=== PATIENT | female | born 1995 | race Caucasian/White ===

== ENCOUNTER 2020-06-12 10:45 | Inpatient (IN) | payer MEDICAID, SELFPAY ==
[2020-06-12] VITALS (18 sets, daily range): BP systolic 103–136; BP diastolic 57–77; PULSE 89–114; RESP 16–18; TEMP 35.9–36.8; O2SAT 97–100; BMI 47.7
[2020-06-12] MEDS: Lactated Ringers 1,000 ML 50 ML IV ×2 (10:45→13:53)
--- NOTE | 2020-06-12 11:30 | US_ITS ---
STUDY: OBSTETRICAL ULTRASOUND - BIOPHYSICAL PROFILE REASON FOR EXAM: Female, 24 years old growth -- biophysical and growth scan needed LMP: 09/04/2019. PRIOR ULTRASOUND: None. TECHNIQUE: Transabdominal TECHNICAL QUALITY: Adequate. FINDINGS: There is a single intrauterine fetus. The fetus is in a cephalic presentation. There is demonstrated cardiac activity with a heart rate of 140 bpm. There is a normal amniotic fluid volume. The largest amniotic fluid pocket measures 6.7 cm. The amniotic fluid index (CHAYO) is 10.3 cm. The placenta is anterior in location and is not low lying. There are Grade 3 placental changes. Age by LMP: 40 weeks, 2 days. LEAH by LMP: 06/10/2020. BIOPHYSICAL PROFILE: Breathing Movements (FBM): 2 Gross Body Movements (GBM): 2 Tone (FT): 2 Amniotic Fluid Volume (AFV): 2 TOTAL SCORE: 8 / 8 US/Biophysical Prof W/O Non Stres IMPRESSION: Normal biophysical profile of 8/8. Electronically Signed: Justin Irvin MD at 13:06 EST , Service support ,
[2020-06-12 11:34] LABS: Absolute Lymphocyte Count 1.93 X10^3/uL (0.83-4.51); Absolute Neutrophil Count 11.1 X10^3/uL (2.0-7.7); Basophil# 0.04 X10^3/uL; Basophil% 0.3 % (0-1); Eosinophil# 0.09 X10^3/uL; Eosinophils% 0.6 % (0-5); Hematocrit 32.8 % (37-47); Lymphocyte # 1.93 X10^3/ul (4.0); Lymphocyte % 13.4 % (19-41); Mean Corp Hgb Conc 30.5 g/dL (32-36); Mean Corpuscular Hgb 23.6 pg (27.0-32.0); Mean Corpuscular Volume 77.5 fL (81-99); Mean Platelet Vol. 11.1 fl (6.2-12.0); Monocyte# 1.12 X10^3/uL; Monocyte% 7.8 % (0-10); NRBC Flagged by Analyzer 0 % (0-5); Neutrophil # 11.06 X10^3/uL (2.7-7.7); Platelet Count 329 K/mm3 (150-450); RBC Distribution Width CV 14.2 % (11.6-14.6); RBC Distribution Width SD 39.6 fl (35.1-43.9); Red Blood Count 4.23 M/mm3 (4.2-5.4); White Blood Count 14.4 K/mm3 (4.4-11.0)
--- NOTE | 2020-06-12 11:42 | US_ITS ---
STUDY: SECOND AND THIRD TRIMESTER OBSTETRICAL ULTRASOUND - LIMITED REASON FOR EXAM: Female, 24 years old GROWTH SCAN 40.2 WEEKS GESTATION LMP: 09/04/2019. PRIOR ULTRASOUND: None. TECHNIQUE: Transabdominal TECHNICAL QUALITY: Adequate. FINDINGS: There is a single intrauterine fetus. The fetus is in a cephalic presentation. There is demonstrated cardiac activity with a heart rate of 143 bpm. There is a normal amniotic fluid volume. The largest amniotic fluid pocket measures 6.75 cm. The amniotic fluid index (CHAYO) is 12.14 cm. The placenta is anterior in location and is not low lying. There are Grade 3 placental changes. BIOMETRY: BPD: 9.22 cm: 37 weeks, 4 days HC: 34.89 cm: 40 weeks, 4 days AC: 38.94 cm: 40 weeks, 0 days FL: 7.24 cm: 37 weeks, 1 days Age by LMP: 40 weeks, 2 days. LEAH by LMP: 06/10/2020. age by current US: 38 weeks, 3 days. LEAH by current US: 06/23/2020. Estimated weight: 4212 grams, +/- 6:15 grams, US/OB Limited With Biometrics IMPRESSION: Single live intrauterine gestation with a mean gestational age of 40 weeks and 2 days. Electronically Signed: Justin Irvin MD at 13:45 EST , Service support ,
[2020-06-12] MEDS: Acetaminophen 500 MG Tablet PO (14:28)
[2020-06-12] MEDS: Sodium Citrate/Citric Acid 30 ML UDC PO (16:17)
[2020-06-12] MEDS: Cefazolin 2 GM in 0.9% Normal Saline 100 ML IV (16:35)
--- NOTE | 2020-06-12 16:57 | PCM.HP.OB ---
History Date of Admission: 06/12/20 Final LEAH: 06/10/20 Gestational age: 40 Weeks and 2 Days History of this : This is a 24 year-old, 1 para 0 at 40-2/7 weeks presented to labor and delivery complaining of some cramping today. She was found not to be in labor but had periods of minimal variability and questionable decelerations. The nonstress test was then be reactive. Patient was sent for biophysical profile and ultrasound for growth because her fundal height had been measuring large for gestational age and the office. She denied any vaginal bleeding or leaking of fluid. She had good movement. Allergies No Known Allergies Allergy (Verified 12/22/16 12:32) Home Medications: Home Medications Norgestrel-Ethinyl Estradiol [Cryselle-28 Tablet] 1 each PO DAILY 08/27/15 Albuterol Inhaler [Ventolin Hfa] 1 - 2 puff INHALATION Q4H PRN PRN #1 inhaler 12/22/16 Guaifenesin/Pseudoephedrne HCl [Mucinex D ER 1,200-120 mg Tab] 1 each PO BID #14 tab.er.12h 12/22/16 Pnv No.95/Ferrous Fum/Folic AC [ Caplet] 1 ea PO DAILY 06/12/20 Smoking Status: Former smoker Alcohol: None Number of Fetus(es): 1 NST - FHR Rate Baby A Baseline: normal Variability:: Minimal, Moderate Accelerations:: 15 x 15 Decelerations:: None NST Reactive:: Yes Uterine Activity:: irreg ctxs History Past Pregnancies: Past Pregnancies Delivery Date Name GA/ Weeks Outcome Route Wt Sex Labor Length Anesthesia Delivery Location Provider FOB Expected Delivery Method: Scheduled Section Review of Systems Constitutional: Denies: Chills, Fever, Night Sweats Eyes: Denies: Blurred vision, Double vision HEENT: Denies: Head Aches, Visual Changes Cardiovascular: Reports: Edema. Denies: Chest Pain Respiratory: Reports: Shortness of Breath - appropriate for . Denies: Cough Gastrointestinal: Denies: Diarrhea, Vomiting Genitourinary: Denies: Dysuria Gynecological: Denies: Vaginal itching Skin: Denies: Rash Neurological: Denies: Blurred vision, Change in Speech, Slurred speech Hematologic/ Lymphatic: Denies: Anemia, Easy Bruising, Easy Bleeding, Hx of blood clot Physical Exam Vitals: Vital Signs Temp Pulse Resp BP Pulse Ox 97.5 F L 104 H 16 136/70 H 100 06/12/20 15:41 06/12/20 15:45 06/12/20 15:41 06/12/20 15:45 06/12/20 15:44 General: Alert, Cooperative, No apparent distress Cardiovascular: Regular rate Lungs: Normal air movement Abdomen: Soft, Non Tender, Non-Distended, Gravid Extremities:: Deep tendon reflexes, Other - 2+edema Neurological: Cranial nerves II-XII grossly intact Assessment/Plan This is a 24 year-old, status of weight gain during the , 70 pounds. Maternal obesity with BMI of 47. Inadequate maternal pelvis. Unengaged head at term. 40-2/7 weeks gestation with large for gestational age . Pelvic exam by me today reveals very narrow arch and prominent heel spines in close proximity. head is not engaged. Discussed with patient risk benefits and alternatives to trial of labor versus primary section. Patient elects for primary section. Risk benefits alternatives and personnel involved with this were reviewed including short and long-term complications and implications for primary section. Discussed with her implications for future pregnancies as well. Her questions were answered to her satisfaction, consent was signed and she desires to proceed.
[2020-06-12] MEDS: Ketorolac 30 MG/ML Syringe IV ×2 (17:42→23:59)
--- NOTE | 2020-06-12 17:45 | OP.PCM_ITS ---
Delivery Classification: Scheduled Final LEAH: 06/10/20 Gestational age: 40 Weeks and 2 Days acid operator: Emily Perry Type of Anesthesia:: Spinal Special Medications: none Implants Used: none Date of Procedure: 06/12/20 Pre-Operative Diagnosis: full term , suspected macrosomic infant, unengaged head at term, small maternal pelvis Post-Operative Diagnosis: same Description of Procedure: The patient was taken to the operating room. She was prepped and draped in the dorsal supine position with a leftward tilt. A Pfannenstiel skin incision was made approximately 2 cm above the symphysis pubis and carried through to underlying layer fascia with the scalpel. The fascia was incised incised in the midline and extended laterally with the Calzada scissors. The fascia was dissected off the rectus muscles with blunt and sharp dissection. The rectus muscles were in the midline and the peritoneum was entered bluntly. The peritoneal incision was stretched and the Jamar -O retractor was placed in the usual fashion The uterine incision was made in a low transverse fashion with the scalpel and extended superiorly and inferiorly with blunt dissection. The amniotic membranes were ruptured bluntly and clear amniotic fluid returned. The infant's head was brought to the incision in the flexed position and delivered without difficulty. The remainder of the was delivered with gentle traction and fundal pressure in the standard fashion. The mouth and nares were bulb suctioned. The cord was clamped and cut as the was stimulated. Cord clamping was delayed. The was handed off to the waiting nursing staff. The placenta was delivered with fundal massage and gentle traction in the standard fashion. The uterus was exteriorized and cleared of all clots and debris. The cervix was dilated with a ring forcep. The uterine incision was closed with #1 Vicryl in a running locked fashion. A second layer of the same suture was used in an imbricating fashion. The incision was examined and was found to be hemostatic. The uterus was placed back into the peritoneal cavity and hemostasis was again confirmed. The rectus muscles were examined and any bleeding was Bovie cauterized. The parietal peritoneum and rectus muscles were closed en bloc with an 0 Vicryl running suture. The surgical teams outer gloves were then changed. The rectus fascia was examined and any bleeding was Bovie cauterized and the rectus fascia was closed with 1 Vicryl suture in a running standard fashion. The subcutaneous tissue was examining and any bleeding was Bovie cauterized. The subcutaneous tissue was reapproximated with 3-0 Vicryl suture. The skin was closed in a subcuticular fashion by the ADMINISTRATIVE OFFICE CLERK with me present in the labor and delivery suite. I performed the remainder of the procedure with assistance. All sponge, lap, and needle counts were correct. The patient was taken to her room for recovery in a stable condition. Start time: 1710 Delivery time: 1716 Stop time:1747 Amniotic Membrane Rupture Type: Artificial Amniotic Fluid Description: Clear Placenta Disposition: [facility] Specimen(s) sent to pathology: none Drain: Nichols to straight drain Fluids Replaced: 800 cc Cord Entanglement: Around neck x 1, loose Nuchal Cord Compression: Without compression Cord Vessel Description: 3 Vessels Esitmated Blood Loss (ml): 900 Infant Gender: Male - Johnie 9lb 13 oz Delayed cord clamping: Yes Antibiotic Given: Ancef 2 grams IV x1
[2020-06-12] MEDS: Oxytocin 30 units/NS 500 ml 30 UNITS/500 ML IV.SOLN 167 UNITS IV (18:29)
[2020-06-12] MEDS: HYDROmorphone 0.5 MG/0.5 ML SYRINGE IV ×3 (18:45→21:27)
[2020-06-12] MEDS: Lactated Ringers 1,000 ML 100 ML IV (21:19)
[2020-06-12] MEDS: Acetaminophen 500 MG Tablet 1000 MG PO (23:09)
[2020-06-13] VITALS (7 sets, daily range): BP systolic 104–132; BP diastolic 49–78; PULSE 84–114; RESP 16–18; TEMP 36.2–36.7; O2SAT 98
[2020-06-13] MEDS: Enoxaparin 40 MG/0.4 ML Syringe SC ×2 (05:04→22:15)
[2020-06-13] MEDS: Acetaminophen 500 MG Tablet 1000 MG PO ×4 (05:04→23:35)
[2020-06-13] MEDS: Ketorolac 30 MG/ML Syringe IV ×2 (05:32→11:07)
[2020-06-13 05:47] LABS: Hematocrit 26.1 % (37-47); Hemoglobin 8.1 g/dL (12.0-15.0); Mean Corpuscular Hgb 24.2 pg (27.0-32.0); Mean Corpuscular Volume 77.9 fL (81-99); Mean Platelet Vol. 11.4 fl (6.2-12.0); Platelet Count 254 K/mm3 (150-450); RBC Distribution Width CV 14.2 % (11.6-14.6); RBC Distribution Width SD 39.8 fl (35.1-43.9); Red Blood Count 3.35 M/mm3 (4.2-5.4); White Blood Count 12.1 K/mm3 (4.4-11.0)
[2020-06-13] MEDS: Senna/Docusate Sodium 1 Tablet PO (10:26)
[2020-06-13] MEDS: 0.9% Saline Lock 10 ML Syringe IV ×2 (11:09→20:12)
--- NOTE | 2020-06-13 11:34 | PCM.PN.OB ---
Subjective: Doing well per patient and nursing staff. Ambulating and taking p.o. without difficulty. Passing flatus. Pain controlled. Nichols out and urinated x2 without difficulty. Lochia normal and no increased bleeding. Denies any headache, visual changes, chest pain, shortness of breath, leg pain, or other concerns. - Physical Exam Vitals/I&O's: Vital Signs Temp Pulse Resp BP Pulse Ox 97.1 F L 84 18 114/64 98 06/13/20 11:15 06/13/20 11:15 06/13/20 11:15 06/13/20 11:15 06/13/20 08:05 Oxygen Delivery Method Room Air Weight: 236 lb 4 oz Body Mass Index (BMI) 47.7 Intake and Output for Last 24 Hours 06/11/20 06/12/20 06/13/20 23:59 23:59 23:59 Intake Total 1803.44 / 1803.44 1503.33 / 1503.33 Output Total 400 / 400 1200 / 1200 Balance 1403.44 / 1403.44 303.33 / 303.33 General: Alert, Oriented x3, Cooperative HEENT: Atraumatic, Normocephalic Lungs: Clear to auscultation, Normal air movement, No rhonchi, No wheeze Cardiovascular: Regular rate, Regular Rhythm, No murmurs Abdomen: Bowel Sounds Present, Soft - Fundus frim 2 below U. Dressing dry and intact. Extremities: Edema - +[address]LE [address]. SCDs in place Psych/Mental Status: Normal Affect, Appropriate Microbiology Past 72 Hours 06/12/20 11:30 Mucosa - Nose SARS-CoV-2 Antigen (Rapid) - Final Laboratory Results 06/12/20 11:25: WBC 14.4 H, RBC 4.23, Hgb 10.0 L, Hct 32.8 L, MCV 77.5 L, MCH 23.6 L, MCHC 30.5 L, RDW Std Deviation 39.6, RDW Coeff of Satnam 14.2, Plt Count 329, MPV 11.1, Immature Gran % (Auto) 0.900, Neut % (Auto) 77.0 H, Lymph % (Auto) 13.4 L, [place] % (Auto) 7.8, Eos % (Auto) 0.6, Baso % (Auto) 0.3, Absolute Neuts (auto) 11.1 H, Absolute Lymphs (auto) 1.93, Nucleated RBC % 0 06/12/20 11:25: Blood Type B POSITIVE, Antibody Screen NEGATIVE 06/13/20 05:10: WBC 12.1 H, RBC 3.35 L, Hgb 8.1 L, Hct 26.1 L, MCV 77.9 L, MCH 24.2 L, MCHC 31.0 L, RDW Std Deviation 39.8, RDW Coeff of Satnam 14.2, Plt Count 254, MPV 11.4 Current Medications Acetaminophen (Acetaminophen 500 Mg Tablet) 1,000 mg PO Q6H [facility] Last Admin: 06/13/20 11:08 Dose: 1,000 mg Documented by: Bisacodyl (Bisacodyl 10 Mg Suppository) 10 mg RECTAL UD PRN PRN Reason: If no BM Enoxaparin Sodium (Enoxaparin 40 Mg/0.4 Ml Syringe) 40 mg SC BID [facility] Last Admin: 06/13/20 05:04 Dose: 40 mg Documented by: Hydrocortisone (Hydrocortisone 2.5% Crm) 1 applic TOPICAL TID PRN PRN; Protocol PRN Reason: Discomfort Hydromorphone HCl (Hydromorphone 0.5 Mg/0.5 Ml Syringe) 0.5 - 1 mg IV Q2H PRN PRN PRN Reason: PAIN 1-10 OR FEVER Last Admin: 06/12/20 21:27 Dose: 0.5 mg Documented by: Ketorolac Tromethamine (Ketorolac 30 Mg/Ml Syringe) 30 mg IV Q6H [facility]; Protocol Stop: 06/13/20 17:46 Last Admin: 06/13/20 11:07 Dose: 30 mg Documented by: Methylergonovine Maleate (Methylergonovine 0.2 Mg/Ml Ampul) 0.2 mg IM X1 PRN PRN Reason: Uterine Atony Naproxen (Naproxen 250 Mg Tablet) 500 mg PO Q8H [facility] Ondansetron HCl (Ondansetron 4 Mg/2 Ml Vial) 4 mg IV Q4H PRN PRN PRN Reason: Nausea Oxycodone HCl (Oxycodone 5 Mg Tablet) 5 - 10 mg PO Q4H PRN PRN PRN Reason: Pain Score 4-10 Prochlorperazine Edisylate (Prochlorperazine 10 Mg/2 Ml Vial) 10 mg IV Q6H PRN PRN PRN Reason: NAUSEA Senna/Docusate Sodium (Senna/Docusate Sodium 1 Tablet) 0 tablet PO DAILY [facility] Last Admin: 06/13/20 10:26 Dose: 1 tablet Documented by: Simethicone (Simethicone 80 Mg Tablet) 80 mg PO PCHS PRN PRN Reason: Indigestion/stomach pain Sodium Chloride (0.9% Saline Lock 10 Ml Syringe) 5 - 15 ml IV UD PRN PRN Reason: SALINE FLUSH Last Admin: 06/13/20 11:09 Dose: 10 ml Documented by: Medical Necessity - Tobacco Use Smoking Status: Former smoker Assessment/Plan A:POD #1 Primary Low Transverse Section Acute Blood Loss Anemia P: 1) routine and postoperative care 2) bottle feeding 3) Hgb 10 down to 8.1, Will start Ferrous Sulfate 325mg PO once and CBC in AM. 4) Pain management 5) Planning D/C home tomorrow
[2020-06-13] MEDS: Ferrous Sulfate 325 MG Tablet PO (17:13)
[2020-06-13] MEDS: oxyCODONE 5 MG Tablet PO (20:11)
[2020-06-13] MEDS: Naproxen 250 MG Tablet 500 MG PO (23:36)
[2020-06-14 00:59] VITALS: BP 118/70; PULSE 109; RESP 18; TEMP 36.5; O2SAT 100
[2020-06-14] MEDS: Acetaminophen 500 MG Tablet 1000 MG PO ×2 (05:07→11:12)
[2020-06-14 05:23] LABS: Hematocrit 26.4 % (37-47); Hemoglobin 8.1 g/dL (12.0-15.0); Mean Corp Hgb Conc 30.7 g/dL (32-36); Mean Corpuscular Hgb 24.2 pg (27.0-32.0); Mean Corpuscular Volume 78.8 fL (81-99); Mean Platelet Vol. 10.8 fl (6.2-12.0); Platelet Count 258 K/mm3 (150-450); RBC Distribution Width CV 14.4 % (11.6-14.6); RBC Distribution Width SD 40.4 fl (35.1-43.9); Red Blood Count 3.35 M/mm3 (4.2-5.4); White Blood Count 12.4 K/mm3 (4.4-11.0)
[2020-06-14 07:58] VITALS: BP 119/75; PULSE 106; RESP 16; TEMP 36.5
[2020-06-14] MEDS: Naproxen 250 MG Tablet 500 MG PO (08:01)
--- NOTE | 2020-06-14 08:17 | PCM.PN.OB ---
Subjective: Patient seen at bedside, doing well. Patient reports good pain control. Mild lochia. Patient is bottlefeeding. She reports ambulating without difficulty. Tolerating regular diet. Denies nausea or vomiting, chest pain or shortness of breath. Patient reports passing flatus. Patient would like DC home today. - Physical Exam Vitals/I&O's: Vital Signs Temp Pulse Resp BP Pulse Ox 97.7 F L 106 H 16 119/75 100 06/14/20 07:58 06/14/20 07:58 06/14/20 07:58 06/14/20 07:58 06/14/20 00:59 Oxygen Delivery Method Room Air Weight: 107.161 kg Body Mass Index (BMI) 47.7 Intake and Output for Last 24 Hours 06/12/20 06/13/20 06/14/20 23:59 23:59 23:59 Intake Total 1803.44 / 1803.44 1503.33 / 1503.33 Output Total 400 / 400 1200 / 1200 Balance 1403.44 / 1403.44 303.33 / 303.33 General: Alert, Oriented x3 Abdomen: Soft, Non Tender, Non-Distended, Passing Flatus, - - This firm. Dressing dry and intact. Extremities: Capillary Refill Less than 3 Seconds Microbiology Past 72 Hours 06/12/20 11:30 Mucosa - Nose SARS-CoV-2 Antigen (Rapid) - Final Laboratory Results 06/14/20 05:15: WBC 12.4 H, RBC 3.35 L, Hgb 8.1 L, Hct 26.4 L, MCV 78.8 L, MCH 24.2 L, MCHC 30.7 L, RDW Std Deviation 40.4, RDW Coeff of Satnam 14.4, Plt Count 258, MPV 10.8 Current Medications Acetaminophen (Acetaminophen 500 Mg Tablet) 1,000 mg PO Q6H [facility] Last Admin: 06/14/20 05:07 Dose: 1,000 mg Documented by: Bisacodyl (Bisacodyl 10 Mg Suppository) 10 mg RECTAL UD PRN PRN Reason: If no BM Enoxaparin Sodium (Enoxaparin 40 Mg/0.4 Ml Syringe) 40 mg SC BID [facility] Last Admin: 06/13/20 22:15 Dose: 40 mg Documented by: Ferrous Sulfate (Ferrous Sulfate 325 Mg Tablet) 325 mg PO 1200,1700 [facility] Last Admin: 06/13/20 17:13 Dose: 325 mg Documented by: Hydrocortisone (Hydrocortisone 2.5% Crm) 1 applic TOPICAL TID PRN PRN; Protocol PRN Reason: Discomfort Hydromorphone HCl (Hydromorphone 0.5 Mg/0.5 Ml Syringe) 0.5 - 1 mg IV Q2H PRN PRN PRN Reason: PAIN 1-10 OR FEVER Last Admin: 06/12/20 21:27 Dose: 0.5 mg Documented by: Methylergonovine Maleate (Methylergonovine 0.2 Mg/Ml Ampul) 0.2 mg IM X1 PRN PRN Reason: Uterine Atony Naproxen (Naproxen 250 Mg Tablet) 500 mg PO Q8H [facility] Last Admin: 06/14/20 08:01 Dose: 500 mg Documented by: Ondansetron HCl (Ondansetron 4 Mg/2 Ml Vial) 4 mg IV Q4H PRN PRN PRN Reason: Nausea Oxycodone HCl (Oxycodone 5 Mg Tablet) 5 - 10 mg PO Q4H PRN PRN PRN Reason: Pain Score 4-10 Last Admin: 06/13/20 20:11 Dose: 5 mg Documented by: Prochlorperazine Edisylate (Prochlorperazine 10 Mg/2 Ml Vial) 10 mg IV Q6H PRN PRN PRN Reason: NAUSEA Senna/Docusate Sodium (Senna/Docusate Sodium 1 Tablet) 0 tablet PO DAILY [facility] Last Admin: 06/13/20 10:26 Dose: 1 tablet Documented by: Simethicone (Simethicone 80 Mg Tablet) 80 mg PO [facility] PRN PRN Reason: Indigestion/stomach pain Sodium Chloride (0.9% Saline Lock 10 Ml Syringe) 5 - 15 ml IV UD PRN PRN Reason: SALINE FLUSH Last Admin: 06/13/20 20:12 Dose: 10 ml Documented by: Medical Necessity - Tobacco Use Smoking Status: Former smoker Assessment/Plan POD#2, doing well- acute on chronic anemia continue iron Routine care ambulation dc home today
--- NOTE | 2020-06-14 08:23 | DCINST_ITS ---
Discharge Diet: No Restrictions - remove dression on post op day #7 or sooner if saturated. Discharge Activity: Return to Normal Activity, May Not Drive - for 2 weeks, May not drive while taking narcotic pain medications., May Shower, May Take a Tub Bath - in 7 days. May resume sexual activity in: 4-6 weeks Lifting Restrictions: 20 pounds Additional Activity Instructions:: Nothing in the vagina for 4-6 weeks. You may return to work/school in 6 weeks. Call your doctor if your incision/area has: Continuous Slow Oozing, Sudden Increased Bleeding, Increased Pain/ Swelling, Increased Redness, Foul Smelling Discharge Call your doctor if you observe: Fever of 101 or Higher, Using more than one pad per hour - for 2 hours Suture Line Care: Avoid Pulling/Pushing, Avoid Pinching/Bending Cleanse incision/area with: Keep Dressing Clean & Dry - remove dressing on Post op day #7 or sooner if saturated Additional Instructions: If you experience any of the following, contact your healthcare provider. * Bleeding that soaks a pad every hour for 2 hours * Fever 100.4 or higher * Unrelieved incision or abdominal pain * Swelling, redness, discharge or bleeding from your incision or episiotomy site * Your incision begins to separate * Problems urinating (including inability to urinate or burning while urinating). * Visual changes * Severe headache * Flu-like symptoms * Pain or redness in one of both of your breasts * Pain, warmth, tenderness or swelling in your legs, especially the calf area * Frequent nausea and vomiting * Symptoms of depression or anxiety If you experience any of the following, call 911 or go to the nearest Emergency Room. * Chest pain * Problems breathing * Seizure activity * Partial or complete paralysis of a body part, slurred speech, weakness or drooping of the face, or a sudden inability to walk or hold your balance Allergies/Adverse Reactions: Allergies No Known Allergies Allergy (Verified 12/22/16 12:32) Medications to take at Discharge Norgestrel-Ethinyl Estradiol [Cryselle-28 Tablet] 1 each PO DAILY 08/27/15 Albuterol Inhaler [Ventolin Hfa] 1 - 2 puff INHALATION Q4H PRN PRN #1 inhaler 12/22/16 Guaifenesin/Pseudoephedrne HCl [Mucinex D ER 1,200-120 mg Tab] 1 each PO BID #14 tab.er.12h 12/22/16 Pnv No.95/Ferrous Fum/Folic AC [ Caplet] 1 ea PO DAILY 06/12/20 Acetaminophen [Tylenol] 1,000 mg PO Q6H #30 tab 06/14/20 Ferrous Sulfate 325 mg PO 1200,1700 #60 tab 06/14/20 Naproxen [Naprosyn] 500 mg PO Q8H #60 tab 06/14/20 Oxycodone [Oxyir] 5 mg PO Q4H PRN PRN 5 Days #10 tablet 06/14/20 The following prescriptions were given: Ferrous Sulfate 325 mg PO 1200,1700 #60 tab Transmission Status: Pending to [facility] Naproxen [Naprosyn] 500 mg PO Q8H #60 tab Transmission Status: Pending to [facility] Oxycodone [Oxyir] 5 mg PO Q4H PRN PRN 5 Days #10 tablet PRN Reason: Pain Score 4-10 Transmission Status: Sent to [facility] Acetaminophen [Tylenol] 1,000 mg PO Q6H #30 tab Transmission Status: Pending to [facility] Follow-Up: Call to make an appointment with your doctor for an incision check in 1-2 weeks. You will also need a 6 week post- follow up appointment. Test results from this visit will be discussed in further detail at your follow- up appointment, if applicable. Please Follow Up With: Veronica Doll MD - Call to make an appointment for an incision check in 1-2 [phone] When: You will need a post- check in 6 weeks. Primary Care Physician: Fernando Quinn III, MD [Primary Care Provider] -
--- NOTE | 2020-06-14 08:24 | DS.PCM_ITS ---
Discharge Summary Date of Admission: 06/26/20 Date of Discharge: 06/14/20 Summary: Sent was admitted to [facility] on 06/12/2020 complaining of contractions she was found not to be in labor. Growth ultrasound BPP was performed which showed an LGA fetus. Was counseled of the findings by Dr. Adams and decision to proceed with a primary section. Patient underwent a primary low transverse section without complication. Discharged home on Post operative day #2 in stable condition.. - Physical Exam Vitals/I&O's: Vital Signs Temp Pulse Resp BP Pulse Ox 97.7 F L 106 H 16 119/75 100 06/14/20 07:58 06/14/20 07:58 06/14/20 07:58 06/14/20 07:58 06/14/20 00:59 Oxygen Delivery Method Room Air Weight: 107.161 kg Body Mass Index (BMI) 47.7 Intake and Output for Last 24 Hours 06/12/20 06/13/20 06/14/20 23:59 23:59 23:59 Intake Total 1803.44 / 1803.44 1503.33 / 1503.33 Output Total 400 / 400 1200 / 1200 Balance 1403.44 / 1403.44 303.33 / 303.33 Microbiology Past 72 Hours 06/12/20 11:30 Mucosa - Nose SARS-CoV-2 Antigen (Rapid) - Final Laboratory Results 06/14/20 05:15: WBC 12.4 H, RBC 3.35 L, Hgb 8.1 L, Hct 26.4 L, MCV 78.8 L, MCH 24.2 L, MCHC 30.7 L, RDW Std Deviation 40.4, RDW Coeff of Satnam 14.4, Plt Count 258, MPV 10.8 Current Medications Acetaminophen (Acetaminophen 500 Mg Tablet) 1,000 mg PO Q6H [facility] Last Admin: 06/14/20 05:07 Dose: 1,000 mg Documented by: Bisacodyl (Bisacodyl 10 Mg Suppository) 10 mg RECTAL UD PRN PRN Reason: If no BM Enoxaparin Sodium (Enoxaparin 40 Mg/0.4 Ml Syringe) 40 mg SC BID [facility] Last Admin: 06/13/20 22:15 Dose: 40 mg Documented by: Ferrous Sulfate (Ferrous Sulfate 325 Mg Tablet) 325 mg PO 1200,1700 [facility] Last Admin: 06/13/20 17:13 Dose: 325 mg Documented by: Hydrocortisone (Hydrocortisone 2.5% Crm) 1 applic TOPICAL TID PRN PRN; Protocol PRN Reason: Discomfort Hydromorphone HCl (Hydromorphone 0.5 Mg/0.5 Ml Syringe) 0.5 - 1 mg IV Q2H PRN PRN PRN Reason: PAIN 1-10 OR FEVER Last Admin: 06/12/20 21:27 Dose: 0.5 mg Documented by: Methylergonovine Maleate (Methylergonovine 0.2 Mg/Ml Ampul) 0.2 mg IM X1 PRN PRN Reason: Uterine Atony Naproxen (Naproxen 250 Mg Tablet) 500 mg PO Q8H [facility] Last Admin: 06/14/20 08:01 Dose: 500 mg Documented by: Ondansetron HCl (Ondansetron 4 Mg/2 Ml Vial) 4 mg IV Q4H PRN PRN PRN Reason: Nausea Oxycodone HCl (Oxycodone 5 Mg Tablet) 5 - 10 mg PO Q4H PRN PRN PRN Reason: Pain Score 4-10 Last Admin: 06/13/20 20:11 Dose: 5 mg Documented by: Prochlorperazine Edisylate (Prochlorperazine 10 Mg/2 Ml Vial) 10 mg IV Q6H PRN PRN PRN Reason: NAUSEA Senna/Docusate Sodium (Senna/Docusate Sodium 1 Tablet) 0 tablet PO DAILY [facility] Last Admin: 06/13/20 10:26 Dose: 1 tablet Documented by: Simethicone (Simethicone 80 Mg Tablet) 80 mg PO [facility] PRN PRN Reason: Indigestion/stomach pain Sodium Chloride (0.9% Saline Lock 10 Ml Syringe) 5 - 15 ml IV UD PRN PRN Reason: SALINE FLUSH Last Admin: 06/13/20 20:12 Dose: 10 ml Documented by:
[2020-06-14] MEDS: Senna/Docusate Sodium 1 Tablet PO (10:02)
[2020-06-14] MEDS: Enoxaparin 40 MG/0.4 ML Syringe SC (10:02)
[2020-06-14] MEDS: Ferrous Sulfate 325 MG Tablet PO (11:12)
[2020-06-14 11:14] VITALS: BP 106/82; PULSE 107; RESP 16; TEMP 36.5
== END 2020-06-14 14:40 | disposition home or self-care (01) | DRG 540 ==
LOC: WPOUT 10:48 → WP 10:48
PROVIDERS: Advanced Practice Midwife; Admitting Provider Obstetrics & Gynecology; PCP Family Medicine; Referring Provider Obstetrics & Gynecology; Visit Provider Obstetrics & Gynecology
DX: O36.63X0 Maternal care for excessive fetal growth, third trimester, not applicable or unspecified (principal); O69.81X0 Labor and delivery complicated by cord around neck, without compression, not applicable or unspecified; D62 Acute posthemorrhagic anemia; O90.81 Anemia of the puerperium; O99.214 Obesity complicating childbirth; E66.9 Obesity, unspecified; Z20.822 Contact with and (suspected) exposure to COVID-19; Z87.891 Personal history of nicotine dependence; Z3A.40 40 weeks gestation of pregnancy; Z37.0 Single live birth
CPT/HCPCS: 59025; 59050; 76816; 76819; 85025; 85027; 86850; 86900; 86901; 87426; 99218; J7120; A4216; G0378; J2405

== ENCOUNTER 2022-07-08 09:15 | Inpatient (IN) | payer MEDICAID, SELFPAY ==
[2022-07-08] VITALS (17 sets, daily range): BP systolic 95–125; BP diastolic 42–82; PULSE 86–117; RESP 16–20; TEMP 35.7–36.8; O2SAT 96–99; BMI 48.1
--- NOTE | 2022-07-08 01:25 | FALS_PTH ---
PATIENT: SONIDO SOLORZANO LOC: [facility] U#:[id number] AGE/SX: 26/F ROOM: [facility] RE07/08/[address]: Dr. Veronica Doll, MDDOB: 1995 BED: 1 DIS: 07/09/2022 SPEC #: [id number] RECD: 07/08/22 15:15 STATUS: JESENIA FELISHA #: [id number] DIVINA: 07/08/22 01:[address]: Veronica Doll DEPT: SURGICAL PATHOLOGY RECD BY: Maria E Dueñas ENTERED: 07/09/22 10:44 SP TYPE: FALL TUBES OTHR DR: Shayla Primary Care Phys Tissues: Fallopian tube Procedures: Surgery Specimen Level II Surgery Specimen Level IV HEADER OPERATION: Tubal ligation PRE-OP DIAGNOSIS: Sterilization TISSUE SUBMITTED: Fallopian tubes, suture in right tube MICROSCOPIC DIAGNOSIS Right fallopian tube, salpingectomy: Complete cross-sections of fallopian tube with no pathologic change. Left fallopian tube, salpingectomy: Complete cross-sections of fallopian tube. Benign paratubal cyst. AM:pedro 07/10/2022 MICROSCOPIC DESCRIPTION Slides are reviewed. GROSS DESCRIPTION Received in fixative is one container labeled with the patient's name and designated bilateral fallopian tubes, stitch on right. The specimen consists of two fallopian tubes with an average length of 6.0 cm and has an average diameter of 0.8 cm. Both fallopian tubes have normal fimbriated ends. No mass lesions are identified. The right fallopian tube contains a paratubal cyst measuring 1.5 cm in greatest dimension and containing clear fluid. Drafter Detail sections are submitted in two cassettes as follows: 1 - right fallopian tube and paratubal cyst, 2 - left fallopian tube. / AM:pedro 07/09/2022 TC:3 CPT: 48172, 67401
--- NOTE | 2022-07-08 08:27 | OB.TRI.NOTE ---
HPI - General General Date of Service: 07/08/22 HPI Narrative SONIDO SOLORZANO, is a 26 F @ 37.6 weeks who presents c/o ? SROM and pressure in vagina. r/o labor. pt is scheduled for repeat cs on 07/16/22 PFSH PFSH Home Medications norgestrel 0.3 mg-ethinyl estradiol 30 mcg tablet ([place] (28)) 1 ea PO DAILY 08/27/15 [History Last Taken 08/27/15] albuterol sulfate 90 mcg/actuation aerosol inhaler (Ventolin HFA) 1 - 2 puff inhalation Q4H PRN PRN Wheezing ##1 12/22/16 [Rx Last Taken 06/10/20] pseudoephedrine-guaifenesin ER 120 mg-1,200 mg tab,extend release 12hr (Mucinex D Maximum Strength) 1 ea PO BID ##14 12/22/16 [Rx Last Taken Unknown] vit no.95-ferrous fumarate 28 mg-folic acid 800 mcg tablet 1 ea PO DAILY 06/12/20 [History Last Taken 06/11/20] acetaminophen 500 mg tablet 1,000 mg PO Q6H #30 tabs 06/14/20 [Rx Last Taken Unknown] naproxen 250 mg tablet 500 mg PO Q8H #60 tabs 06/14/20 [Rx Last Taken Unknown] ferrous sulfate 325 mg (65 mg iron) tablet 325 mg PO QODAY anemia 07/08/22 [History Last Taken 07/06/22 08:00 325 mg] Allergy/AdvReac Type Severity Reaction Status Date / Time No Known Allergies Allergy Verified 07/08/22 08:28 Social History Smoking Status: Former smoker History Elective abortions Hx Para 0 Spontaneous abortions Hx # Term Pregnancies Ectopic pregnancies Hx # Pregnancies Multiple births # of living children Physical Exam Narrative gen: female in nAD abd: gravid, non tender VE: ROM plus sent, /- NST FHR Rate Baby A Baseline: 145 Variability:: Moderate Accelerations:: 15 x 15 Decelerations:: None NST Reactive:: Yes FHR Category:: Category I Uterine Activity:: irregular Assessment & Plan (1) 37 weeks gestation of : (2) Gestational diabetes: (3) Previous delivery affecting : (4) Obesity affecting : PLAN: Plan @ 37.6 weeks- r/o labor, prev cs 1) continue to monitor FHR/toco 2) ROM plus sent 3) If negative and no cervical change will dc home
[2022-07-08 09:02] LABS: ROM Internal Control Test YES-OK TO RESULT pt. (Internal QC)
[2022-07-08 09:04] LABS: ROM Patient Test POSITIVE (Negative)
--- NOTE | 2022-07-08 09:27 | PCM.HP.OB ---
HPI - General General Date of Admission: 07/08/22 Date of Service: 07/08/22 Chief Complaint: ? SROM and pressure r/o labor HPI Narrative SONIDO SOLORZANO, is a 26 F @ 37.6 weeks who presents for ? SROM and Pressure, R/o Labor. pt is scheduled r/c/s PFSH PFSH Home Medications ferrous sulfate 325 mg (65 mg iron) tablet 325 mg PO QODAY anemia 07/08/22 [History Last Taken 07/06/22 08:00 325 mg] Allergy/AdvReac Type Severity Reaction Status Date / Time No Known Allergies Allergy Verified 07/08/22 08:28 Social History Smoking Status: Former smoker History Elective abortions Hx Para 0 Spontaneous abortions Hx # Term Pregnancies Ectopic pregnancies Hx # Pregnancies Multiple births # of living children NST FHR Rate Baby A Baseline: 140 Variability:: Moderate Accelerations:: 15 x 15 Decelerations:: None NST Reactive:: Yes Uterine Activity:: irregular Vital Signs Vital Signs Vital Signs: 07/08/22 08:21 07/08/22 08:21 07/08/22 08:21 Temperature Pulse Rate 117 H Blood Pressure 118/67 BP Systolic 118 BP Diastolic 67 Pulse Ox 99 07/08/22 08:00 Temperature 97.6 F L Pulse Rate Blood Pressure BP Systolic BP Diastolic Pulse Ox Weight Weight: 109.9 kg Body Mass Index (BMI) 48.1 Physical Exam Narrative Gen: female in NAD Abd; Gravid, non tender. VE: 1/thick/high ROM PLUS SENT- Positive. Limited bedside ultrasound confirms Vertex Const alert and oriented x3 General Appearance: cooperative HEENT normocephalic GI GI Narrative: Gravid, non tender to palpation. OB / External & Speculum: external exam normal Extremity normal to inspection Skin no rashes or lesions noted Neuro oriented x3 and CN's II-XII intact bilaterally Psych Appearance: grossly normal Labs Labs Labs: Blood Type B POSITIVE Antibody Screen NEGATIVE Hct 26.4 % (37-47) L Hgb 8.1 g/dL (12.0-15.0) L Obstetrics US Rhogam given: No Assessment & Plan (1) Obesity affecting : (2) Previous delivery affecting : (3) Gestational diabetes: (4) 37 weeks gestation of : (5) SROM (spontaneous rupture of membranes): PLAN: Plan Admit to L&D- repeat cs and Salpingectomy at 37.6 weeks Montior FHR/TOCO Plan for c/s around 12:45 unless change in maternal or status prior to that time Monitor VS ++ ROM PLUS Spinal for CS planned Ancef 3 grams and Azithromycin 500mg x 1 preop GDMA1- monitor BS
[2022-07-08] MEDS: Lactated Ringers 1,000 ML 999 ML IV (10:04)
[2022-07-08 10:10] LABS: Bedside Glucose 80 mg/dL (74-106)
[2022-07-08] MEDS: Acetaminophen 500 MG Tablet 1000 MG PO ×3 (10:12→22:12)
[2022-07-08 10:18] LABS: Absolute Lymphocyte Count 1.97 X10^3/uL (0.83-4.51); Basophil# 0.05 X10^3/uL; Basophil% 0.4 % (0-1); Eosinophil# 0.06 X10^3/uL; Eosinophils% 0.5 % (0-5); Hematocrit 37.4 % (37-47); Hemoglobin 11.5 g/dL (12.0-15.0); Lymphocyte # 1.97 X10^3/ul (0.83-4.51); Lymphocyte % 14.8 % (19-41); Mean Corp Hgb Conc 30.7 g/dL (32-36); Mean Corpuscular Volume 74.7 fL (81-99); Mean Platelet Vol. 10.9 fl (6.2-12.0); Monocyte# 1.01 X10^3/uL; Monocyte% 7.6 % (0-10); NRBC Flagged by Analyzer 0 % (0-5); Neutrophil # 10.01 X10^3/uL (2.7-7.7); Neutrophil % 75.4 % (47-70); Platelet Count 305 K/mm3 (150-450); RBC Distribution Width CV 16.3 % (11.6-14.6); Red Blood Count 5.01 M/mm3 (4.2-5.4); White Blood Count 13.3 K/mm3 (4.4-11.0)
[2022-07-08 10:57] LABS: Syphilis Antibodies Non-reactive
[2022-07-08] MEDS: Lactated Ringers 1,000 ML 150 ML IV (11:11)
[2022-07-08] MEDS: Sodium Citrate/Citric Acid 30 ML UDC PO (12:41)
--- NOTE | 2022-07-08 13:57 | OP.PCM_ITS ---
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 sHe was placed in the supine position. She was then prepped and draped in normal sterile fashion. Once spinal anesthesia was found to be adequate skin incision was made with a scalpel in a Pfannenstiel fashion. It was carried down to the underlying layer of the fascia. Fascia was then incised midline with scapel and extended laterally using curved carmichael. 2 straight Michael's were placed in the superior aspect of the fascial edge and the rectus muscles were dissected off sharply. Attention was then turned to the inferior aspect where again the fascial edge was grasped with 2 straight Hagerman clamps tented up and the rectus muscle dissected off sharply. At this time the rectus muscles were seperated in midline and peritoneum entered shaprly. Jamar O rectractor placed. At this time the vesicouterine peritoneum was identified. Uterine incision was made in a low transverse fashion with the scalpel and then entered bluntly. Gentle opposing traction was placed to extend the uterine incision. Infant's head was then brought to the uterine incision was delivered atraumatically followed by the rest infant's body. At this time delayed cord clamping was performed mouth nose were suctioned. Infant was then handed to the waiting nursery team. The placenta was then removed with gentle traction. The uterus was cleared of all clots and debris using a moist lap. Ring clamps were placed on the uterine angles. #1 Vicryl suture was used in a running locked fashion for the first layer. excellent hemostasis noted. Tubes and ovaries were evaluated they were normal. The tubes were grasped in an avascular area with the Clifton, LigaSure was used to coagulate and ligate along the mesosalpinx to in remove the tube in its entirety. It was repeated on both sides. Great hemostasis was appreciated at this time the uterine incision was again evaluated good hemostasis was appreciated. The peritoneum was grasped with Kellys. Peritoneum was reapproximated using #2 Vicryl suture in a running fashion. Dano placed over rectus muscle. The fascia was then reapproximated using #1 PDS in a running fashion. Subcutaneous layer was evaluated and Bovie was used for any small oozing that was noted per #2-0 plain gut suture was then used to reapproximate the subcutaneous layer. dano placed. 4-0 Vicryl on a Yung needle was used to reapproximate the skin in a subcutaneous fashion. Dry sterile dressing was applied. Instrument lap needle count were correct ?2. Anticipated normal postoperative course for this patient. Presentation: Positive for Vertex Amniotic Membrane Rupture Type: Spontaneous Amniotic Fluid Description: Clear Placental Delivery Description: Expressed Placenta Disposition: [facility] Cord Vessel Description: 3 Vessels Cord Entanglement: None Infant A Gender: Male (1 minute): 8 (5 minute): 9 Delayed Cord Clamping: Yes Complications Risks of Surgery Discussed w/Patient: Bleeding, Anesthesia Risks, Infection, Permanency, Injury to surrounding structure(s) including bowel and bladder and Availability of other non-permanent control options Complications: none
[2022-07-08] MEDS: Oxytocin 15 Units/NS 250ml 15 UNITS/250 ML IV.SOLN 83 UNITS IV (14:33)
[2022-07-08] MEDS: Ketorolac 30 MG/ML Syringe IV ×2 (14:40→20:30)
[2022-07-08] MEDS: 0.9% Saline Lock 10 ML Syringe IV ×2 (14:40→16:21)
[2022-07-08 15:16] LABS: Pathology Specimen OB SEE PATHOLOGY REPORT
[2022-07-08 15:46] LABS: Bedside Glucose 110 mg/dL (74-106)
[2022-07-08] MEDS: HYDROmorphone 1 MG/ML Syringe IV (16:21)
[2022-07-08] MEDS: Lactated Ringers 1,000 ML 100 ML IV (17:29)
--- NOTE | 2022-07-08 22:37 | NURSING ---
MOB reports wanting to pump to see if she is producing enough milk for her . This RN educated patient on colostrum and how it is thicker and harder to be expressed by a pump at this stage. Hand expression or latching from is the best way to stimulate breasts to make the body produce mature milk for the . At this point in time it may not seem like the baby is not getting much but the small amounts of colostrum are filled with nutrient dense components. MOB verbalized understanding and this RN encouraged patient to keep and pump if desired and not to be discouraged.
[2022-07-08] MEDS: oxyCODONE 5 MG Tablet PO (23:38)
[2022-07-09] MEDS: Ketorolac 30 MG/ML Syringe IV ×2 (02:52→08:59)
[2022-07-09] MEDS: 0.9% Saline Lock 10 ML Syringe IV ×3 (02:53→09:00)
[2022-07-09 02:59] VITALS: BP 110/67; PULSE 97; RESP 16; TEMP 36.2; O2SAT 99
[2022-07-09] MEDS: Acetaminophen 500 MG Tablet 1000 MG PO ×2 (04:39→10:39)
[2022-07-09] MEDS: HYDROmorphone 1 MG/ML Syringe IV (04:50)
[2022-07-09 06:57] LABS: Hematocrit 29.7 % (37-47); Mean Corp Hgb Conc 30.3 g/dL (32-36); Mean Corpuscular Hgb 22.8 pg (27.0-32.0); Mean Corpuscular Volume 75.4 fL (81-99); Mean Platelet Vol. 10.8 fl (6.2-12.0); Platelet Count 235 K/mm3 (150-450); RBC Distribution Width CV 16.3 % (11.6-14.6); RBC Distribution Width SD 44.5 fl (35.1-43.9); Red Blood Count 3.94 M/mm3 (4.2-5.4); White Blood Count 13.2 K/mm3 (4.4-11.0)
[2022-07-09] MEDS: Senna/Docusate Sodium 1 Tablet PO (08:56)
[2022-07-09] MEDS: Enoxaparin 40 MG/0.4 ML Syringe SC (08:57)
[2022-07-09 09:39] VITALS: BP 115/70; PULSE 80; RESP 16; TEMP 36.6; O2SAT 98
[2022-07-09 11:41] VITALS: BP 108/61; PULSE 71; RESP 18; TEMP 36.5; O2SAT 100
--- NOTE | 2022-07-09 13:26 | PCM.PN.OB ---
Subjective Subjective Pain well controlled. Average lochia. Tolerating regular diet. Ambulating and urinating without difficulty. Objective Data Objective Data Vital Signs: Vital Signs Temp Pulse Resp BP Pulse Ox O2 Del Method 97.7 F L 71 18 108/61 100 Room Air 07/09/22 11:41 07/09/22 11:41 07/09/22 11:41 07/09/22 11:41 07/09/22 11:41 07/09/22 11:41 Oxygen Delivery Method Room Air Weight: 109.9 kg Body Mass Index (BMI) 48.1 Intake & Output: Intake and Output for Last 24 Hours 07/07/22 07/08/22 07/09/22 23:59 23:59 23:59 Intake Total 2681.52 / 2681.52 Output Total 1050 / 1050 400 / 400 Balance 1631.52 / 1631.52 -400 / -400 Lab / Micro Data Result Diagrams: 07/09/22 06:46 Labs: Laboratory Results - last 24 hr 07/08/22 14:43: POC Glucose 110 H 07/09/22 06:46: WBC 13.2 H, RBC 3.94 L, Hgb 9.0 L, Hct 29.7 L, MCV 75.4 L, MCH 22.8 L, MCHC 30.3 L, RDW Std Deviation 44.5 H, RDW Coeff of Satnam 16.3 H, Plt Count 235, MPV 10.8 Physical Exam Const alert General Appearance: cooperative GI GI Narrative: soft, moderate distention, fundus firm, appropriately tender. Abdominal bandage clean dry and intact Assessment & Plan (1) delivery delivered: PLAN: Postoperative day #1 status post repeat section. Patient and are doing well. Desires discharge home today. Discharged home with routine instructions and prescriptions. Mild acute blood loss anemia appropriate for blood loss during surgery. Patient is tolerating this well. Continue vitamins and iron at home.
--- NOTE | 2022-07-09 13:27 | PCM.DC.SUM ---
Providers Date of Admission: 07/08/22 Primary Care Physician: Shayla Primary Care Phys Reason For Visit: REPEAT C SECTION Medications at Discharge Home Medications ferrous sulfate 325 mg (65 mg iron) tablet 325 mg PO QODAY anemia 07/08/22 ibuprofen 600 mg tablet 600 mg PO Q6H PRN Pain 30 days #60 TABLETS 07/09/22 oxycodone 5 mg tablet 5 mg PO Q8H PRN severe pain 7 days #12 TABLETS 07/09/22 Hospital Course Operations - (Repeat low transverse section and bilateral salpingectomy performed on 07/08/2022) Summary of Care Provided Minutes Spent on Discharge: 24 Hospital Course: 26-year-old multigravida female with morbid obesity presented on 07/08/2022 with premature rupture of membranes. She was at 37 weeks gestation. She desired sterilization. She underwent repeat low transverse section with bilateral salpingectomy on 07/08/2022 without difficulty. She desired discharge home. On postoperative day #1 she had mild acute blood loss anemia appropriate for blood loss during surgery. She desired discharge home with routine instructions and follow-up. She is to follow-up in the office within 1 week. She is to remove the bandage in 5 days. Weight / BMI Weight Weight: 109.9 kg Body Mass Index (BMI) 48.1 ABG / Lab / Microbiology Data Result Diagrams: 07/09/22 06:46 Laboratory: Laboratory Results - last 24 hr 07/08/22 14:43: POC Glucose 110 H 07/09/22 06:46: WBC 13.2 H, RBC 3.94 L, Hgb 9.0 L, Hct 29.7 L, MCV 75.4 L, MCH 22.8 L, MCHC 30.3 L, RDW Std Deviation 44.5 H, RDW Coeff of Satnam 16.3 H, Plt Count 235, MPV 10.8 Meaningful Use Info Meaningful Use Diagnoses (Choose all that apply): None applicable Discharge Plan Admission Admit Date/Time: 07/08/22 09:15 Primary Reason for Your Visit: delivery and tubal sterilization Attending Provider: Veronica Doll Primary Care Provider: Jose C Physician,Shayla Primary Discharge Orders/Prescriptions Prescriptions: New ibuprofen [ibuprofen] 600 mg tablet 600 mg PO Q6H PRN (Reason: Pain) 30 Days Qty: 60 1RF oxycodone 5 mg tablet 5 mg PO Q8H PRN (Reason: severe pain) 7 Days Qty: 12 0RF Continued ferrous sulfate 325 MG tablet 325 mg PO QODAY Referrals / Follow Up: Care Physician,No Primary [Primary Care Provider] - Disposition Disposition (needs filled in before D/C Order can be placed): Home, Self Care
[2022-07-09] MEDS: Ibuprofen 600 MG Tablet PO (15:10)
[2022-07-09 15:35] VITALS: BP 113/71; PULSE 98; RESP 16; TEMP 36.6; O2SAT 100
== END 2022-07-09 15:55 | disposition home or self-care (01) | DRG 539 ==
LOC: WPOUT 09:19 → WP 09:19
PROVIDERS: Admitting Provider Obstetrics & Gynecology; Referring Provider Obstetrics & Gynecology; Visit Provider Obstetrics & Gynecology
DX: O42.92 Full-term premature rupture of membranes, unspecified as to length of time between rupture and onset of labor (principal); E66.01 Morbid (severe) obesity due to excess calories; O24.419 Gestational diabetes mellitus in pregnancy, unspecified control; O36.63X0 Maternal care for excessive fetal growth, third trimester, not applicable or unspecified; O34.211 Maternal care for low transverse scar from previous cesarean delivery; O99.214 Obesity complicating childbirth; Z3A.37 37 weeks gestation of pregnancy; Z37.0 Single live birth; Z87.891 Personal history of nicotine dependence
CPT/HCPCS: 76815; 82962; 84112; 85025; 85027; 86780; 86850; 86900; 86901; 88302; 88305; 99221; J7120; A4216; G0378; J2405